=== PATIENT | female | born 1955 | race Caucasian/White ===

== ENCOUNTER 2018-09-12 13:57 | Outpatient (CLI) | payer BC, SELFPAY ==
[2018-09-12 15:30] LABS: FREE T4 0.74 ng/dL (0.76-1.46); TSH (W/Ref FT4) 0.63 uIU/mL (0.358-3.74)
== END 2018-09-12 14:17 ==
PROVIDERS: PCP Naturopath; Visit Provider General Practice
DX: E03.9 Hypothyroidism, unspecified (principal)
CPT/HCPCS: 36415; 84439; 84443

== ENCOUNTER 2019-10-10 14:18 | Outpatient (REF) | payer BC, SELFPAY ==
--- NOTE | 2019-10-10 13:20 | PAPFT_PTH ---
PATIENT: Liana Murry LOC: [facility] U#:[id number] AGE/SX: 64/F ROOM: RE10/10/[address]: Teresa Man : 1955 BED: DIS: 10/10/2019 SPEC #: [id number] RECD: 10/10/19 18:26 STATUS: RANDY ALLISON #: [id number] EMERY: 10/10/19 13:[address]: Teresa Man [facility] Cytology RECD BY: Petra Rodriguez ENTERED: 10/10/19 18:27 SP TYPE: PAPFT OTHR DR: Marcie Villaseñor Tissues: 1 - CX/ENDOCX FOR PAP SMEARS Procedures: PAP THIN PREP/[facility] Screening HPV DNA PROBE Comments: [id number]
== END 2019-10-10 14:38 ==
LOC: LBN 14:18
PROVIDERS: PCP Naturopath; Visit Provider Obstetrics & Gynecology Gynecology
DX: Z12.4 Encounter for screening for malignant neoplasm of cervix (principal)
CPT/HCPCS: 88142; 87624

== ENCOUNTER 2019-10-29 02:59 | Outpatient (CLI) | payer BC, SELFPAY ==
--- NOTE | 2019-10-29 14:38 | DI.MAMMO_ITS ---
EXAM: MG MAMMO SCREENING CLINICAL HISTORY: screening TECHNIQUE: Bilateral full field digital CC and MLO mammographic images were obtained with 3D tomosyn thesis and utilizing computer aided detection (CAD). COMPARISON: Available for comparison. FINDINGS: Masses/Architectural Distortion: None seen. Microcalcifications: No suspicious pleomorphic-type are seen. Skin Thickening/Nipple Retraction: None. IMPRESSION: 1. No significant interval change with no specific features of malignancy noted. 2. Unless there is more urgent need, screening mammography is recommended, as per [place] [employer] guidelines. ACR BI-RAD Category- 1 Negative Breast Density - Category B - Scattered areas of fibroglandular density A negative radiographic report should not delay biopsy if a dominant or clinically suspicious mass is present. Up to ten percent of cancers are not identified on mammography. A negative report may reinforce clinical impression. Adenosis and dense breasts may obscure an underlying neoplasm. False positive reports average 6 to 10%. Patient will receive a letter notifying them of these results.
== END 2019-10-29 03:19 ==
PROVIDERS: PCP Internal Medicine; Visit Provider Obstetrics & Gynecology Gynecology
DX: Z12.31 Encounter for screening mammogram for malignant neoplasm of breast (principal)
CPT/HCPCS: 77063; 77067

== ENCOUNTER 2020-08-04 04:17 | Outpatient (CLI) | payer BC, SELFPAY ==
[2020-08-04 11:22] LABS: TSH (W/Ref FT4) 0.95 uIU/mL (0.36-3.74)
== END 2020-08-04 04:37 ==
PROVIDERS: PCP Internal Medicine; Visit Provider General Practice
DX: E03.9 Hypothyroidism, unspecified (principal)
CPT/HCPCS: 36415; 84443

== ENCOUNTER 2020-11-23 02:26 | Outpatient (CLI) | payer MEDICARE, OTHER, SELFPAY ==
[2020-11-23 13:00] LABS: Abs Immature Grans 0.01 10^3/uL (0.0-0.06); Absolute Basophil Count 0.03 10^3/uL (0.0-0.2); Absolute Eosinophil Count 0.13 10^3/uL (0.0-0.7); Absolute Monocyte Count 0.45 10^3/uL (0.1-0.8); Absolute Neutrophil Count 1.75 10^3/uL (1.2-6.7); Basophils % 0.7; Eosinophils % 3.2; HCT 41.9 % (36.0-46.0); HGB 13.6 g/dL (11.2-15.7); Immature Grans % 0.2; Lymphocytes % 41.8; MCHC 32.5 % (32.0-36.0); MCV 92.5 fL (80-95); MPV 10.3 fL (8.0-11.0); Monocytes % 11.1; Nucleated RBC 0 %; Platelet Count 235 10^3/uL (130-400); RBC 4.53 10^6/uL (3.93-5.22); RDW 13.2 % (11.7-14.6); RDW-SD 45.2 fL; WBC 4.07 10^3/uL (4.4-10.8)
[2020-11-23 13:16] LABS: ALT 64 U/L (14-59); AST 36 U/L (15-37); Albumin 4.1 g/dL (3.4-5.0); Alkaline Phosphatase 80 U/L (46-116); Anion Gap 6.6 mmol/L (3-11); BUN 22 mg/dL (7-18); Bilirubin, Total 0.5 mg/dL (0.2-1.0); CO2 29.4 mmol/L (21.0-32.0); CREATININE 1.04 mg/dL (0.55-1.02); Calcium 9.4 mg/dL (8.5-10.1); Chloride 104 mmol/L (98-107); Estimated GFR 53.18 (mL/min/1.73m2); Glucose 95 mg/dL (74-106); Potassium 4.1 mmol/L (3.5-5.1); Sodium 140 mmol/L (136-145)
== END 2020-11-23 02:46 ==
PROVIDERS: PCP General Practice; Visit Provider General Practice
DX: R53.83 Other fatigue (principal)
CPT/HCPCS: 36415; 80053; 85025

== ENCOUNTER 2020-12-02 02:47 | Outpatient (CLI) | payer MEDICARE, OTHER, SELFPAY ==
[2020-12-02 13:33] LABS: Calculated LDL 241 mg/dL (<100); Cholesterol 314 mg/dL (<200); HDL Cholesterol 60 mg/dL (40-60); Triglyceride 65 mg/dL (<150)
== END 2020-12-02 03:07 ==
PROVIDERS: Nurse Practitioner Family; PCP General Practice; Visit Provider General Practice
DX: E03.9 Hypothyroidism, unspecified (principal); Z13.6 Encounter for screening for cardiovascular disorders
CPT/HCPCS: 36415; 80061

== ENCOUNTER 2021-01-28 02:51 | Outpatient (CLI) | payer MEDICARE, OTHER, SELFPAY ==
[2021-01-28 12:34] LABS: Calculated LDL 140 mg/dL (<100); Cholesterol 226 mg/dL (<200); HDL Cholesterol 70 mg/dL (40-60); Triglyceride 81 mg/dL (<150)
== END 2021-01-28 02:52 | disposition home or self-care (01) ==
LOC: LOS 02:51
PROVIDERS: PCP General Practice; Visit Provider General Practice
DX: E78.5 Hyperlipidemia, unspecified (principal)
CPT/HCPCS: 36415; 80061

== ENCOUNTER 2021-02-09 00:49 | Outpatient (CLI) | payer MEDICARE, SELFPAY ==
--- NOTE | 2021-02-09 09:00 | DI.DEXA_ITS ---
EXAM: XR DEXA BONE DENSITY W/WO PAULINE CLINICAL HISTORY: H/O OSTEOPOROSIS, RECHECK,M81.0 TECHNIQUE: [email or web address] C densitometer. COMPARISON: 2016 FINDINGS: The lateral view of the thoracic and lumbar spine shows no evidence of compression fractures. A bone mineral density measurements of the lumbar spine correspond to a total T-score of -4.0, in the osteo parotic range. There has been a 16.7 percent decrease in bone mineral density when compared w ith the previous exam. Bone mineral density measurements of the left hip correspond to a total T-score of -2.4 and a femoral neck T-score of -2.8. Total bone density has not significantly decreased when compared with the pre vious exam. The bone mineral density measurements of the left forearm correspond to a T-score of the distal 3rd o f -0.6, in the normal range. There has been no significant change when compared with 2016. IMPRESSION: Stable normal bone mineral density of the left forearm. Osteoporosis of the lumbar spine with signif icant decrease in bone density when compared with 2016. Stable osteoporosis of the left hip.
== END 2021-02-09 01:09 ==
PROVIDERS: PCP General Practice; Visit Provider Nurse Practitioner Family
DX: M81.0 Age-related osteoporosis without current pathological fracture (principal)
CPT/HCPCS: 77080

== ENCOUNTER 2021-05-11 10:50 | Outpatient (CLI) | payer MEDICARE, SELFPAY ==
--- NOTE | 2021-05-11 10:30 | DI.RAD_ITS ---
Exam(s) XR SHOULDER LT COMPLETE 2+V EXAM: XR SHOULDER LT COMPLETE 2+V CLINICAL HISTORY: left shoulder pain. TECHNIQUE: 2D digital imaging was performed. COMPARISON: No exams were available for comparison FINDINGS: BONES: No acute fracture is present. No bony destructive lesion is seen. JOINTS: No dislocation present. SOFT TISSUE: Normal. IMPRESSION: Unremarkable radiographs of the left shoulder. DATA REPOSITORY: RADIATION DOSE DELIVERED:
== END 2021-05-11 10:51 | disposition home or self-care (01) ==
LOC: DIORS 10:50
PROVIDERS: PCP General Practice; Referring Provider General Practice; Visit Provider Student in an Organized Health Care Education/Training Program
DX: M25.512 Pain in left shoulder (principal); M75.02 Adhesive capsulitis of left shoulder; M75.52 Bursitis of left shoulder
CPT/HCPCS: 99203; 73030

== ENCOUNTER 2021-05-31 02:13 | Outpatient (CLI) | payer MEDICARE, SELFPAY ==
[2021-05-31 18:44] LABS: Calculated LDL 165 mg/dL (<100); Cholesterol 243 mg/dL (<200); HDL Cholesterol 68 mg/dL (40-60); T4 6.5 ug/mL (4.7-13.3); TSH 0.82 uIU/mL (0.36-3.74); Triglyceride 50 mg/dL (<150)
[2021-05-31 19:02] LABS: FREE T4 0.93 ng/dL (0.76-1.46)
[2021-06-01 16:32] LABS: T3, Total 112 ng/dL (97-169)
[2021-06-04 12:37] LABS: T3 (Triiodothyronine) Reverse 20 ng/dL (10-24)
== END 2021-05-31 02:14 | disposition home or self-care (01) ==
LOC: LBO 02:13
PROVIDERS: PCP General Practice; Visit Provider General Practice
DX: E03.9 Hypothyroidism, unspecified (principal); E78.5 Hyperlipidemia, unspecified
CPT/HCPCS: 36415; 80061; 84436; 84439; 84443; 84480; 84481; 84482

== ENCOUNTER 2021-08-12 03:30 | Outpatient (CLI) | payer MEDICARE, SELFPAY ==
[2021-08-12 15:27] LABS: FREE T4 0.83 ng/dL (0.76-1.46); TSH 1.32 uIU/mL (0.36-3.74)
[2021-08-12 15:46] LABS: T4 7.3 ug/mL (4.7-13.3)
[2021-08-12 22:28] LABS: T3,Free 3.5 pg/mL (2.8-5.3)
[2021-08-12 22:41] LABS: T3, Total 118 ng/dL (97-169)
[2021-08-17 15:54] LABS: T3 (Triiodothyronine) Reverse 16 ng/dL (10-24)
== END 2021-08-12 03:31 | disposition home or self-care (01) ==
LOC: LBO 03:30
PROVIDERS: PCP General Practice; Visit Provider General Practice
DX: E03.9 Hypothyroidism, unspecified (principal)
CPT/HCPCS: 36415; 84436; 84439; 84443; 84480; 84481; 84482

== ENCOUNTER → 2022-04-18 01:05 | Outpatient (CLI) | payer MEDICARE, SELFPAY ==
--- NOTE | 2022-04-18 07:15 | DI.MAMMO_ITS ---
Exam(s) MAMMO SCREENING EXAM: MAMMO SCREENING CLINICAL HISTORY: screening,z12.39 TECHNIQUE: Mammograms were interpreted according to the usual protocol including computer analysis w [employer] CAD system, tomosynthesis and C-view imaging. COMPARISON: 2015 through 2019 FINDINGS: The breasts are composed of scattered fibroglandular densities, Breast Density category B. No suspicious masses or suspicious microcalcifications are seen. Incidental vascular calcifications. No skin thickening or abnormal axillary lymph nodes are seen. There has been no significant change from prior exams. IMPRESSION: BI-RADS Category 1, Negative mammogram Yearly screening mammography is recommended. Breast Density - Category B, scattered fibroglandular densities. A negative radiographic report should not delay biopsy if a dominant or clinically suspicious mass is present. Up to ten percent of cancers are not identified on mammography. A negative report may reinforce clinical impression. Adenosis and dense breasts may obscure an underlying neoplasm. False positive reports average 6 to 10%. Patient will receive a letter notifying them of these results.
== END ==
PROVIDERS: PCP General Practice; Visit Provider Nurse Practitioner Family
DX: Z12.31 Encounter for screening mammogram for malignant neoplasm of breast (principal)
CPT/HCPCS: 77063; 77067

== ENCOUNTER 2022-04-20 02:12 | Outpatient (CLI) | payer MEDICARE, SELFPAY ==
[2022-04-20 13:04] LABS: Hemoglobin A1C 5.5 % (<5.7)
[2022-04-20 13:29] LABS: ALT 32 U/L (14-59); AST 28 U/L (15-37); Alkaline Phosphatase 84 U/L (46-116); Bilirubin, Total 0.3 mg/dL (0.2-1.0); Calculated LDL 207 mg/dL (<100); Cholesterol 276 mg/dL (<200); HDL Cholesterol 47 mg/dL (40-60); TSH (W/Ref FT4) 2.11 uIU/mL (0.36-3.74); Total Protein 7.1 g/dL (6.4-8.2); Triglyceride 112 mg/dL (<150); Vitamin B12 643 pg/mL (193-986)
[2022-04-20 13:38] LABS: Bilirubin, Direct 0.1 mg/dL (0.0-0.2); C-Reactive Protein 0.11 mg/dL (0.0-0.3)
[2022-04-23 16:22] LABS: 25-Hydroxy D Total 52 ng/mL; 25-Hydroxy D2 <4.0 ng/mL; 25-Hydroxy D3 52 ng/mL
== END 2022-04-20 02:13 | disposition home or self-care (01) ==
LOC: LOS 02:12
PROVIDERS: PCP General Practice; Visit Provider General Practice
DX: E03.9 Hypothyroidism, unspecified (principal)
CPT/HCPCS: 36415; 80061; 80076; 82306; 82607; 83036; 84443; 86140

== ENCOUNTER 2022-09-20 03:59 | Outpatient (CLI) | payer MEDICARE, SELFPAY ==
[2022-09-20 13:09] LABS: TSH (W/Ref FT4) 4.33 uIU/mL (0.36-3.74)
[2022-09-20 14:21] LABS: FREE T4 0.97 ng/dL (0.76-1.46)
[2022-09-22 04:54] LABS: Vitamin D 25 Total 43.5 ng/mL (30-100)
== END 2022-09-20 04:00 | disposition home or self-care (01) ==
LOC: LOS 03:59
PROVIDERS: PCP General Practice; Visit Provider General Practice
DX: E03.9 Hypothyroidism, unspecified (principal); E55.9 Vitamin D deficiency, unspecified
CPT/HCPCS: 36415; 82306; 84439; 84443

== ENCOUNTER 2022-12-01 02:26 | Outpatient (CLI) | payer MEDICARE, SELFPAY ==
[2022-12-01 12:49] LABS: FREE T4 0.93 ng/dL (0.76-1.46); TSH 8.72 uIU/mL (0.36-3.74)
== END 2022-12-01 02:27 | disposition home or self-care (01) ==
LOC: LOS 02:26
PROVIDERS: PCP General Practice; Visit Provider General Practice
DX: E03.9 Hypothyroidism, unspecified (principal)
CPT/HCPCS: 36415; 84439; 84443

== ENCOUNTER 2023-01-16 03:20 | Outpatient (CLI) | payer MEDICARE, SELFPAY ==
[2023-01-16 12:34] LABS: FREE T4 0.96 ng/dL (0.76-1.46); TSH 2.16 uIU/mL (0.36-3.74)
== END 2023-01-16 03:21 | disposition home or self-care (01) ==
LOC: LOS 03:20
PROVIDERS: PCP General Practice; Visit Provider General Practice
DX: E03.9 Hypothyroidism, unspecified (principal)
CPT/HCPCS: 36415; 84439; 84443

== ENCOUNTER 2024-02-21 17:56 | Outpatient (REF) | payer MEDICARE, SELFPAY ==
[2024-02-21 18:23] LABS: Anion Gap 9.8 mmol/L (3-11); BUN 17 mg/dL (7-18); CO2 28.2 mmol/L (21.0-32.0); Calcium 9.9 mg/dL (8.5-10.1); Chloride 105 mmol/L (98-107); Estimated GFR 61.36 (mL/min/1.73m2); Glucose 105 mg/dL (74-106); Potassium 4.7 mmol/L (3.5-5.1); Sodium 143 mmol/L (136-145)
[2024-02-21 19:07] LABS: Vitamin D 25 Total 55.6 ng/mL (30-100)
== END 2024-02-21 17:57 | disposition home or self-care (01) ==
LOC: LBN 17:56
PROVIDERS: PCP Nurse Practitioner Family; Visit Provider Nurse Practitioner Family
DX: M81.0 Age-related osteoporosis without current pathological fracture (principal); G35 Multiple sclerosis; E03.9 Hypothyroidism, unspecified; Z13.1 Encounter for screening for diabetes mellitus
CPT/HCPCS: 80048; 82306

== ENCOUNTER 2024-02-23 01:56 | Outpatient (CLI) | payer MEDICARE, SELFPAY ==
[2024-02-23 12:23] LABS: Estimated GFR 61.36 (mL/min/1.73m2)
== END 2024-02-23 01:57 | disposition home or self-care (01) ==
LOC: LOS 01:56
PROVIDERS: PCP Nurse Practitioner Family; Visit Provider Nurse Practitioner Family
DX: G35 Multiple sclerosis (principal)
CPT/HCPCS: 36415; 82565

== ENCOUNTER → 2024-03-08 00:34 | Outpatient (CLI) | payer MEDICARE, SELFPAY ==
--- NOTE | 2024-03-08 07:15 | DI.MRI_ITS ---
Exam(s) MR BRAIN WO/W EXAM: MR BRAIN WO/W CLINICAL HISTORY: monitor multiple sclerosis, g35 TECHNIQUE: Multiplanar multisequence MRI of the brain was performed. Both noninfused and contrast i nfused sequences were performed. IV Contrast injected was 16 cc Dotarem. COMPARISON: None. There are no prior brain imaging studies in our PACS system FINDINGS: CEREBRAL PARENCHYMA: No evidence of intracranial hemorrhage, mass effect nor shift of midline structu re. No extraaxial fluid collections. Ventricles are not enlarged nor shifted. There are multiple foci of FLAIR bright signal abnormality in the storm and supra ventricular white ma tter including the corpus callosum, most probably demyelinating plaques given the history here. Other considerations would be for chronic ischemic sequelae. DWI: No areas of restricted diffusion to suggest acute ischemic event. SWI: There is a focus of susceptibility in the high right parietal region, not associated with signal abnormality nor enhancement on conventional sequences. No surrounding edema. Consistent with focal microhemorrhage. There are no enhancing lesions in the brain. Also no ring enhancing lesions in the brain. There is no abnormal meningeal enhancement. PITUITARY GLAND: No mass nor parasellar abnormality. No obvious abnormality in the cavernous sinuses. FLOW VOIDS: The expected flow void are noted. No evidence of obvious aneurysm nor obvious vascular ma lformation. PARANASAL SINUSES: The visualized paranasal sinuses appear unremarkable. ORBITS: No obvious abnormal findings. IMPRESSION: 1. There are multiple foci of FLAIR bright signal abnormality in the Storm in supra ventricular white matter including the corpus callosum which are probably demyelinating plaques, given the history here , although cannot exclude the possibly that some of these are secondary to chronic ischemic changes. Nevertheless, there is no so seated hemorrhage, surrounding edema nor enhancement of these lesions a nd no evidence of restricted diffusion related to these lesions. 2. There is a small focus of hypointensity on SWI in the right parietal lobe region. Most probably r epresents previous microhemorrhage. There is no evidence of vascular malformation (such as cavernoma ) at this level. DATA REPOSITORY:
[2024-03-08] MEDS: Normal Saline Flush 10 ML SYR IVP (10:13)
[2024-03-08] MEDS: Gadoterate meglumine 20 ML SYRINGE 16 ML IVP (10:14)
== END ==
PROVIDERS: PCP Nurse Practitioner Family; Visit Provider Nurse Practitioner Family
DX: G35 Multiple sclerosis (principal)
CPT/HCPCS: 70553

== ENCOUNTER → 2024-03-22 00:01 | Outpatient (CLI) | payer MEDICARE, SELFPAY ==
--- NOTE | 2024-03-22 07:45 | DI.MAMMO_ITS ---
Exam(s) MAMMO SCREENING EXAM: MAMMO SCREENING CLINICAL HISTORY: screening,Z12.30, H/O BREAST REDUCTION TECHNIQUE: Bilateral full field digital CC and MLO mammographic images were obtained with 3D tomosyn thesis and utilizing computer aided detection (CAD). COMPARISON: Available for comparison. FINDINGS: Masses/Architectural Distortion: None seen. Microcalcifications: No suspicious pleomorphic-type are seen. Skin Thickening/Nipple Retraction: None. IMPRESSION: 1. No significant interval change with no specific features of malignancy noted. 2. Unless there is more urgent need, screening mammography is recommended, as per [place] [employer] guidelines. BI-RADS Category 1 - Negative Breast Density - Category B - Scattered areas of fibroglandular density Breast density category C or D implies that the patient has dense breast tissue. Dense breast tissue is very common and is not abnormal but dense breast tissue can make it harder to find cancer on a ma mmogram. Also, dense breast tissue may increase their breast cancer risk. This information about the result of the mammogram report was provided to the patient to raise their awareness. Use this report when you speak with the patient about their risks for breast cancer, which includes their family hist ory. At that time, you may recommend for more screening tests (Ultrasound or MRI) as they might be us eful based on their risk. A negative radiographic report should not delay biopsy if a dominant or clinically suspicious mass is present. Up to ten percent of cancers are not identified on mammography. A negative report may reinforce clinical impression. Adenosis and dense breasts may obscure an underlying neoplasm. False positive reports average 6 to 10%. Patient will receive a letter notifying them of these results.
--- NOTE | 2024-03-22 07:45 | DI.DEXA_ITS ---
Exam(s) XR DEXA BONE DENSITY W/WO PAULINE EXAM: XR DEXA BONE DENSITY W/WO PAULINE CLINICAL HISTORY: OSTEOPOROSIS,M81.0,SCREENING OF OSTEOPOROSIS, Z78.0 TECHNIQUE: COMPARISON: CR XR DEXA BONE DENSITY W/WO PAULINE from 02/09/2021 FINDINGS: Lateral Spine Image: Unremarkable. No compression deformities identified. Left hip: Total T-Score: -2.6 this compares to -2.4 on the prior examination. Total Z-Score: -1.2 T- and Z-scores: Findings are consistent with osteoporosis. Lumbar Spine: Total T-Score: -3.1. This compares to -4.0 on the prior examination. Total Z-Score: -1.1 T- and Z-scores: Findings are consistent with osteoporosis. IMPRESSION: Osteoporosis in the left hip and lumbar spine.
== END ==
PROVIDERS: PCP Nurse Practitioner Family; Visit Provider Nurse Practitioner Family
DX: Z12.31 Encounter for screening mammogram for malignant neoplasm of breast (principal); M81.0 Age-related osteoporosis without current pathological fracture; Z13.820 Encounter for screening for osteoporosis; Z78.0 Asymptomatic menopausal state
CPT/HCPCS: 77063; 77067; 77080

== ENCOUNTER 2024-05-17 11:34 | Outpatient (REF) | payer MEDICARE, SELFPAY ==
--- NOTE | 2024-05-17 11:50 | PAPFT_PTH ---
PATIENT: Liana Murry LOC: [facility] U#:[id number] AGE/SX: 68/F ROOM: RE05/17/[address]: Teresa Man : 1955 BED: DIS: 05/17/2024 SPEC #: [id number] RECD: 05/17/24 14:42 STATUS: RANDY REKelly #: [id number] EMERY: 05/17/24 11:[address]: Teresa Man DEPT: [facility] Cytology RECD BY: Hazel Hunter ENTERED: 05/17/24 14:43 SP TYPE: PAPFT OTHR DR: Zac Turner DNP Tissues: 1 - CX/ENDOCX FOR PAP SMEARS Procedures: PAP THIN PREP/[facility] Screening HPV DNA PROBE Comments: [id number] (HPV 16 & 18/45)
== END 2024-05-17 11:35 | disposition home or self-care (01) ==
LOC: LBN 11:34
PROVIDERS: PCP Nurse Practitioner Family; Visit Provider Obstetrics & Gynecology Gynecology
DX: Z12.4 Encounter for screening for malignant neoplasm of cervix (principal); N72 Inflammatory disease of cervix uteri
CPT/HCPCS: 88142; 87624

== ENCOUNTER → 2024-05-22 01:39 | Outpatient (CLI) | payer MEDICARE, SELFPAY ==
--- NOTE | 2024-05-22 07:00 | DI.US_ITS ---
Exam(s) US PELVIS TRANSVAGINAL EXAM: US PELVIS TRANSVAGINAL CLINICAL HISTORY: postmenopausal bleeding,N95.0,uses hrt TECHNIQUE: Transabdominal and transvaginal imaging was performed using standard protocol. COMPARISON: US PELVIS TRANSVAG from 02/23/2016 FINDINGS: UTERUS: Anteverted. 9.1 x 4.3 x 4.6 cm Endometrium: 3 mm . Trace amount of fluid within the knee tree [address] CT. Myometrium: Unremarkable. Cervix: Unremarkable. OVARIES: Normal in size. No evidence of cyst or mass. . DOPPLER: Color: Symmetric and uniform flow to both ovaries. No hyperemia. CUL-DE-SAC: Free fluid: None. IMPRESSION: 1. Normal-appearing uterus. Small amount of fluid in the endometrial cavity. 2. Ovaries are unremarkable. DATA REPOSITORY:
== END ==
PROVIDERS: PCP Nurse Practitioner Family; Visit Provider Obstetrics & Gynecology Gynecology
DX: N95.0 Postmenopausal bleeding (principal); Z79.890 Hormone replacement therapy
CPT/HCPCS: 76830; 76856

== ENCOUNTER → 2024-05-27 10:44 | Outpatient (CLI) | payer MEDICARE, SELFPAY ==
--- NOTE | 2024-05-27 08:45 | DI.RAD_ITS ---
Exam(s) XR SHOULDER RT COMPLETE 2+V EXAM: XR SHOULDER RT COMPLETE 2+V CLINICAL HISTORY: no improvement with PT, M25.511. TECHNIQUE: 2D digital imaging was performed of the right shoulder. Five images were obtained. AP, Grashey, Y-view and axillary views were obtained. COMPARISON: No exams were available for comparison FINDINGS: BONES: No acute fracture is present. No bony destructive lesion is seen. JOINTS: No dislocation present. The joint spaces are well maintained. SOFT TISSUE: Normal. IMPRESSION: Unremarkable radiographs of the right shoulder. DATA REPOSITORY: RADIATION DOSE DELIVERED:
== END ==
PROVIDERS: PCP Nurse Practitioner Family; Visit Provider Nurse Practitioner Family
DX: M25.511 Pain in right shoulder (principal)
CPT/HCPCS: 73030

== ENCOUNTER → 2024-06-12 09:58 | Outpatient (BNVA) | payer MEDICARE, SELFPAY | PROVIDERS: PCP Nurse Practitioner Family; Referring Provider Nurse Practitioner Family; Visit Provider Student in an Organized Health Care Education/Training Program | DX: M75.101 Unspecified rotator cuff tear or rupture of right shoulder, not specified as traumatic (principal); W31.9XXA Contact with unspecified machinery, initial encounter | CPT/HCPCS: 99203; 99213 ==

== ENCOUNTER 2024-07-01 02:09 | Outpatient (CLI) | payer MEDICARE, SELFPAY ==
--- NOTE | 2024-07-01 08:18 | DI.MRI_ITS ---
Exam(s) MR UPPER JOINT RT WO EXAM: MR UPPER JOINT RT WO CLINICAL HISTORY: ? ROTATOR CUFF TEAR,rt shoulder pain, m25.511. TECHNIQUE: Multiplanar multisequence MRI was performed. COMPARISON: None. FINDINGS: BONES: There is no fracture or contusion pattern. JOINTS:The acromioclavicular joint shows minimal spurring. The glenohumeral joint is normal. No feli int effusion TENDONS: Supraspinatus: Minimal high signal distally. Infraspinatus: Unremarkable. Subscapularis: Unremarkable. Teres Minor: Unremarkable. Biceps and [place]: Unremarkable. MUSCLES: Unremarkable. GLENOID LABRUM: Unremarkable on this noncontrast examination. SOFT TISSUES: Unremarkable. OTHER: Subacromial and subdeltoid bursae shows minimal edema. IMPRESSION: Minimal high signal distal supraspinatus tendon. Minimal edema in the sub acromial subdeltoid bursa. Findings could indicate mild tendinitis and bursitis. DATA REPOSITORY:
== END 2024-07-01 02:29 ==
LOC: DI 02:10
PROVIDERS: PCP Nurse Practitioner Family; Visit Provider Student in an Organized Health Care Education/Training Program
DX: M25.511 Pain in right shoulder (principal)
CPT/HCPCS: 73221

== ENCOUNTER → 2024-07-09 13:41 | Outpatient (BNVA) | payer MEDICARE, SELFPAY | PROVIDERS: PCP Nurse Practitioner Family; Referring Provider Nurse Practitioner Family; Visit Provider Student in an Organized Health Care Education/Training Program | DX: M75.101 Unspecified rotator cuff tear or rupture of right shoulder, not specified as traumatic (principal) | CPT/HCPCS: 99213 ==

== ENCOUNTER 2024-09-05 01:33 | Outpatient (CLI) | payer MEDICARE, SELFPAY ==
--- NOTE | 2024-09-05 06:30 | DI.RAD_ITS ---
Exam(s) XR FOOT RT COMPLETE EXAM: XR FOOT RT COMPLETE CLINICAL HISTORY: bunion of rt foot,m21.611. TECHNIQUE: 2D digital imaging was performed. Three views. COMPARISON: No exams were available for comparison FINDINGS: BONES: No acute fracture is present. No bony destructive lesion is seen. JOINTS: No dislocation present. No significant degenerative changes. Plantar arch is maintained. SOFT TISSUE: Prominent focal soft tissue swelling lateral to the 5th MTP joint. No calcification or foreign body. IMPRESSION: Focal soft tissue swelling lateral to the 5th MTP joint. DATA REPOSITORY: RADIATION DOSE DELIVERED:
== END 2024-09-05 01:53 ==
LOC: DI 01:33
PROVIDERS: PCP Nurse Practitioner Family; Visit Provider Podiatrist
DX: M21.611 Bunion of right foot (principal)
CPT/HCPCS: 17110; 73630

== ENCOUNTER 2024-09-06 02:42 | Outpatient (CLI) | payer MEDICARE, SELFPAY ==
[2024-09-06 12:29] LABS: Abs Immature Grans 0.01 10^3/uL (0.0-0.06); Absolute Basophil Count 0.04 10^3/uL (0.0-0.2); Absolute Eosinophil Count 0.16 10^3/uL (0.0-0.7); Absolute Lymphocyte Count 1.52 10^3/uL (1.2-3.4); Absolute Monocyte Count 0.45 10^3/uL (0.1-0.8); Eosinophils % 3.8 %; HCT 41.4 % (36.0-46.0); HGB 13.3 g/dL (11.2-15.7); Immature Grans % 0.2 %; Lymphocytes % 36.4 %; MCHC 32.1 % (32.0-36.0); MCV 93 fL (80-95); MPV 10.1 fL (8.0-11.0); Monocytes % 10.8 %; Neutrophils % 47.8 %; Platelet Count 242 10^3/uL (130-400); RBC 4.44 10^6/uL (3.93-5.22); RDW 13.2 % (11.7-14.6); RDW-SD 45.4 fL; WBC 4.18 10^3/uL (4.4-10.8)
[2024-09-06 12:47] LABS: Uric Acid 4.8 mg/dL (2.6-6.0)
== END 2024-09-06 02:43 | disposition home or self-care (01) ==
PROVIDERS: PCP Nurse Practitioner Family; Visit Provider Podiatrist
DX: L03.90 Cellulitis, unspecified (principal); E79.0 Hyperuricemia without signs of inflammatory arthritis and tophaceous disease
CPT/HCPCS: 36415; 84550; 85025

== ENCOUNTER 2024-09-24 01:49 | Outpatient (CLI) | payer MEDICARE, SELFPAY ==
--- NOTE | 2024-09-24 06:15 | DI.RAD_ITS ---
Exam(s) XR FOOT LT COMPLETE EXAM: XR FOOT LT COMPLETE CLINICAL HISTORY: Fifth MPJ fela vega,,m21.622. TECHNIQUE: 2D digital imaging was performed. COMPARISON: CR XR FOOT RT COMPLETE from 09/05/2024 FINDINGS: 3 views No evidence of fracture or diastasis of the Lisfranc joint. Bone density normal. No osseous lesions . Moderate size inferior calcaneal spur noted. No calcification noted in the plantar fascia. Great toe metatarsophalangeal joint appears unremarkable. Mild soft tissue swelling noted lateral to the head of the 5th metatarsal. No evidence of ulcer nor soft tissue calcification or radiopaque foreign body at this level. Fifth metatarsal head appears un remarkable. IMPRESSION: As above. No significant radiographic findings. DATA REPOSITORY: RADIATION DOSE DELIVERED:
== END 2024-09-24 02:09 ==
LOC: DI 01:49
PROVIDERS: PCP Nurse Practitioner Family; Visit Provider Podiatrist
DX: M21.622 Bunionette of left foot (principal)
CPT/HCPCS: 73630

== ENCOUNTER → 2024-09-25 08:28 | Outpatient (BNVA) | payer MEDICARE, SELFPAY | PROVIDERS: PCP Nurse Practitioner Family; Referring Provider Nurse Practitioner Family; Visit Provider Podiatrist | DX: M21.622 Bunionette of left foot (principal); M10.9 Gout, unspecified; B07.0 Plantar wart; L84 Corns and callosities; M21.621 Bunionette of right foot; M20.21 Hallux rigidus, right foot | CPT/HCPCS: 99214 ==

== ENCOUNTER → 2024-12-05 08:24 | Outpatient (BNVA) | payer MEDICARE, SELFPAY | PROVIDERS: PCP Nurse Practitioner Family; Referring Provider Nurse Practitioner Family; Visit Provider Psychiatry & Neurology Neurology | DX: Z71.1 Person with feared health complaint in whom no diagnosis is made (principal); E03.9 Hypothyroidism, unspecified; M81.0 Age-related osteoporosis without current pathological fracture | CPT/HCPCS: 99215 ==

== ENCOUNTER 2024-12-26 11:41 | Outpatient (CLI) | payer MEDICARE, SELFPAY ==
[2024-12-26 13:50] LABS: TSH (W/Ref FT4) 2.14 uIU/mL (0.36-3.74)
== END 2024-12-26 11:42 | disposition home or self-care (01) ==
LOC: LOS 11:44
PROVIDERS: PCP Nurse Practitioner Family; Visit Provider Nurse Practitioner Family
DX: E03.9 Hypothyroidism, unspecified (principal)
CPT/HCPCS: 36415; 84443

== ENCOUNTER 2025-02-20 01:05 | Outpatient (CLI) | payer MEDICARE, SELFPAY ==
[2025-02-20 13:04] LABS: Hemoglobin A1C 5.4 % (<5.7)
[2025-02-20 13:17] LABS: FREE T4 0.92 ng/dL (0.76-1.46); TSH (W/Ref FT4) 4.46 uIU/mL (0.36-3.74)
[2025-02-20 18:21] LABS: T3, Total 121 ng/dL (97-169)
[2025-02-25 15:40] LABS: T3 (Triiodothyronine) Reverse 21 ng/dL (10-24)
== END 2025-02-20 01:06 | disposition home or self-care (01) ==
PROVIDERS: PCP Nurse Practitioner Family; Visit Provider Nurse Practitioner Family
DX: E03.9 Hypothyroidism, unspecified (principal); Z13.1 Encounter for screening for diabetes mellitus
CPT/HCPCS: 36415; 83036; 84439; 84443; 84480; 84482

== ENCOUNTER 2025-04-25 01:19 | Outpatient (CLI) | payer MEDICARE, SELFPAY ==
[2025-04-25 12:57] LABS: Calculated LDL 209 mg/dL (<100); Cholesterol 291 mg/dL (<200); FREE T4 1.06 ng/dL (0.76-1.46); HDL Cholesterol 52 mg/dL (>or=50); TSH 6.29 uIU/mL (0.36-3.74); Triglyceride 152 mg/dL (<150)
[2025-04-25 22:59] LABS: T3, Total 116 ng/dL (97-169)
[2025-05-01 16:23] LABS: T3 (Triiodothyronine) Reverse 22 ng/dL (10-24)
== END 2025-04-25 01:20 | disposition home or self-care (01) ==
LOC: LOS 01:19
PROVIDERS: PCP Nurse Practitioner Family; Visit Provider Nurse Practitioner Family
DX: E03.9 Hypothyroidism, unspecified (principal); E78.00 Pure hypercholesterolemia, unspecified
CPT/HCPCS: 36415; 80061; 84439; 84443; 84480; 84482

== ENCOUNTER 2025-07-24 00:24 | Outpatient (CLI) | payer MEDICARE, SELFPAY ==
[2025-07-24 14:45] LABS: ALT 28 U/L (14-59); AST 23 U/L (15-37); Albumin 4.3 g/dL (3.4-5.0); Alkaline Phosphatase 68 U/L (46-116); Anion Gap 9.3 mmol/L (3-11); BUN 12 mg/dL (7-18); Bilirubin, Total 0.4 mg/dL (0.2-1.0); CO2 29.7 mmol/L (21.0-32.0); Calcium 9.7 mg/dL (8.5-10.1); Chloride 101 mmol/L (98-107); Estimated GFR 60.98 (mL/min/1.73m2); Glucose 87 mg/dL (74-106); Potassium 3.9 mmol/L (3.5-5.1); Sodium 140 mmol/L (136-145); TSH (W/Ref FT4) 3.97 uIU/mL (0.36-3.74); Total Protein 7.5 g/dL (6.4-8.2); Vitamin D 25 Total 71 ng/mL (30-100)
[2025-07-24 14:47] LABS: Folate > 20.0 ng/mL (8.6-20.0); Vitamin B12 > 2000 pg/mL (193-986)
[2025-07-29 17:40] LABS: Apolipoprotein B, Serum 139 mg/dL (48-124); Beta VLDL Cholesterol Not Detected mg/dL (<15); Beta VLDL Triglycerides Not Detected mg/dL (<15); Cholesterol, Total, CDC 267 mg/dL; Chylomicron Cholesterol Not Detected; Chylomicron Triglycerides Not Detected; HDL Cholesterol, CDC 49 mg/dL (>=50); LpX Not detected; Triglycerides, CDC 111 mg/dL; VLDL Triglycerides 34 mg/dL (<120)
== END 2025-07-24 00:25 | disposition home or self-care (01) ==
LOC: LOS 00:24
PROVIDERS: PCP Nurse Practitioner Family; Visit Provider Nurse Practitioner Family
DX: E78.5 Hyperlipidemia, unspecified (principal); E03.9 Hypothyroidism, unspecified; R53.83 Other fatigue; M81.0 Age-related osteoporosis without current pathological fracture
CPT/HCPCS: 36415; 80053; 80061; 82306; 86376; 82172; 82607; 82664; 82746; 84439; 84443

== ENCOUNTER 2025-08-29 03:09 | Outpatient (CLI) | payer MEDICARE, SELFPAY ==
--- NOTE | 2025-08-29 06:30 | DI.US_ITS ---
Exam(s) US BREAST LT LIMITED MG MAMMO DIAGNOSTIC BI EXAM: MAMMO DIAGNOSTIC BI CLINICAL HISTORY: Palpable mass at 4 o'clock left,DENSE BREAST,ABNL BREAST EXAM,N64.59. COMPARISON: 2015 through 2023 TECHNIQUE: Craniocaudal and mediolateral oblique Full Field Digital Mammography views of both breasts with Computer Aided Diagnosis followed by Tomosynthesis and left breast ultrasound. FINDINGS: Mammography/Tomosynthesis: Masses: None seen. Architectural Distortion: Mild scarring related to breast reduction surgery. Microcalcifications: No suspicious pleomorphic-type are seen. Skin Thickening/Nipple Retraction: None. Left breast US: Echotexture: Normal appearance of the glandular tissue. Shadowing: No suspicious foci. Cyst: None. Solid lesions: None seen. Ductal dilation: None. IMPRESSION: 1. No evidence of malignancy is noted. 2. Unless there is more urgent need, follow-up screening mammography is recommended, as per [place] [employer] guidelines. BI-RADS Category 2 - Benign Findings Breast Density - Category B - There are scattered areas of fibroglandular density. Breast density Category C or D implies that the patient has dense breast tissue. Dense breast tissue can make it harder to find cancer on a mammogram. Dense breast tissue is also associated with an increased risk of breast cancer. This information about the result of the mammogram report was provided to the patient to raise their awareness. Use this report when you speak with the patient about their risks for breast cancer, which includes their family history. At that time, you may recommend additional screening tests (Ultrasound or MRI) as these tests may add significant information. A negative radiographic report should not delay biopsy if a dominant or clinically suspicious mass is present. Up to ten percent of cancers are not identified on mammography. A negative report may reinforce clinical impression. Adenosis and dense breasts may obscure an underlying neoplasm. False positive reports average 6 to 10%. Patient will receive a letter notifying them of these results.
== END 2025-08-29 03:29 ==
LOC: DI 03:09
PROVIDERS: PCP Nurse Practitioner Family; Visit Provider Obstetrics & Gynecology
DX: Z12.31 Encounter for screening mammogram for malignant neoplasm of breast (principal); N64.59 Other signs and symptoms in breast
CPT/HCPCS: 76642; 77062; 77066; G0279

== ENCOUNTER → 2025-10-28 00:19 | Outpatient (CLI) | payer MEDICARE, SELFPAY ==
--- NOTE | 2025-10-28 07:15 | DI.MRI_ITS ---
Exam(s) MR LOWER JOINT RT WO EXAM: MR LOWER JOINT RT WO CLINICAL HISTORY: 17 weeks of pain despite PT,rt ankle sprain,s93.401a,r60.9 TECHNIQUE: Multiplanar multisequence MRI was performed without intravenous contrast. COMPARISON: CR XR FOOT RT COMPLETE from 09/05/2024 FINDINGS: BONES/JOINTS: No fracture or contusion pattern. No bone lesions identified. The talar dome is smooth. The ankle mortise is maintained. No joint effusion is present. LIGAMENTS: The tibiofibular and calcaneofibular ligaments are intact. The talofibular ligaments are intact. The deltoid ligament is intact. The syndesmosis is unremarkable. Sinus tarsi is normal. MUSCULOTENDINOUS STRUCTURES: Achilles tendon: Unremarkable. Plantar fascia: Unremarkable. Anterior Extensor tendons: Unremarkable. Posterior Tibialis: Unremarkable. Flexor Digitorum longus: Unremarkable. Flexor Hallucis longus: Unremarkable. Peroneus longus: The peroneus longus tendon is intact. There is a small amount of fluid seen within the peroneal tendon sheath. Peroneus brevis:There is a split peroneus brevis tendon. SOFT TISSUES: There is mild edema seen in the soft tissues lateral to the peroneus tendons in the location adjacent to the lateral malleolus. OTHER FINDINGS: None. IMPRESSION: 1. There is a split peroneus brevis tendon. 2. There is fluid seen within the peroneal tendon sheath which can be seen with tenosynovitis or related to the split Peroni is brevis tendon. 3. Mild edema seen in the soft tissues lateral to the peroneus tendons. DATA REPOSITORY:
== END ==
LOC: DI 00:19
PROVIDERS: PCP Nurse Practitioner Family; Visit Provider Nurse Practitioner Family
DX: S93.401A Sprain of unspecified ligament of right ankle, initial encounter (principal); R60.9 Edema, unspecified
CPT/HCPCS: 73721